=== PATIENT | male | born 1965 ===

== ENCOUNTER 2018-01-25 10:49 | Outpatient (CLI) | payer OTHER ==
[~2018-01-25] VITALS: Ht 177.8 cm; Wt 104.3 kg
== END 2018-01-25 11:10 | disposition home or self-care (01) ==
LOC: OFIC 805 10:49
DX: K11.23 Chronic sialoadenitis (principal); K11.5 Sialolithiasis; R22.1 Localized swelling, mass and lump, neck

== ENCOUNTER 2018-02-15 09:38 | Outpatient (CLI) | payer OTHER ==
[~2018-02-15] VITALS: Ht 152.4 cm; Wt 104.3 kg
== END 2018-02-15 15:52 | disposition home or self-care (01) ==
LOC: OFIC 805 09:38
DX: K11.20 Sialoadenitis, unspecified (principal); K11.5 Sialolithiasis; R22.1 Localized swelling, mass and lump, neck

== ENCOUNTER 2018-02-22 08:59 | Outpatient (CLI) | payer OTHER ==
[~2018-02-22] VITALS: Ht 152.4 cm; Wt 104.3 kg
== END 2018-02-22 14:43 | disposition home or self-care (01) ==
LOC: OFIC 805 08:59
DX: K11.21 Acute sialoadenitis (principal); K11.5 Sialolithiasis; R22.1 Localized swelling, mass and lump, neck

== ENCOUNTER 2018-04-26 07:36 | Outpatient (CLI) | payer OTHER ==
[~2018-04-26] VITALS: Ht 152.4 cm; Wt 104.3 kg
== END 2018-04-26 08:00 | disposition home or self-care (01) ==
LOC: OFIC 805 07:36
DX: K11.23 Chronic sialoadenitis (principal); R22.1 Localized swelling, mass and lump, neck

== ENCOUNTER 2018-10-25 09:26 | Outpatient (CLI) | payer OTHER ==
[~2018-10-25] VITALS: Ht 152.4 cm; Wt 104.3 kg
== END 2018-10-25 09:40 | disposition home or self-care (01) ==
LOC: OFIC 805 09:26
DX: K11.20 Sialoadenitis, unspecified (principal); K11.5 Sialolithiasis; R22.1 Localized swelling, mass and lump, neck

== ENCOUNTER 2022-05-20 11:52 | Emergency (ER) | payer OTHER ==
[~2022-05-20] VITALS: Ht 177.8 cm; Wt 106.6 kg
== END 2022-05-20 14:27 | disposition home or self-care (01) ==
LOC: ER 11:52
DX: R68.83 Chills (without fever) (principal); Z88.0 Allergy status to penicillin